=== PATIENT | male | born 1985 | race Caucasian/White ===

== ENCOUNTER → 2016-12-18 | Outpatient (CLI) | payer SELFPAY ==
--- NOTE | 2016-12-19 09:55 | MR ---
EXAMINATION: MRI cervical spine HISTORY: Muscle weakness COMPARISON: None. TECHNIQUE: Multiplanar and multisequence images obtained of the cervical spine without contrast. FINDINGS: The cervical spinal alignment is normal. The vertebral body heights appear well maintained . There is no abnormal bone marrow signal. The cervical spinal cord signal appears normal. The preve rtebral soft tissues are within normal limits. C2-C3: Tiny diffuse disc bulge without significant spinal canal or neural foraminal stenosis. C3-C4: Tiny diffuse disc bulge without significant spinal canal stenosis. Moderate right neural fora solo stenosis accentuated by uncovertebral hypertrophy. C4-C5: Grossly unremarkable. C5-C6: Small to moderate diffuse disc bulge resulting in mild spinal canal stenosis. Minimal bilater al neural foraminal stenosis. C6-C7: Tiny diffuse disc bulge without significant spinal canal stenosis. Mild left neural foraminal stenosis. C7-T1: Unremarkable. IMPRESSION: 1. Multilevel degenerative disc disease noted within the cervical spine with individual details [email or web address] [email or web address]
== END ==
LOC: MW.MRI 15:12
PROVIDERS: ATTEND Family Medicine
DX: M54.2 Cervicalgia (principal); M62.81 Muscle weakness (generalized); M54.12 Radiculopathy, cervical region
CPT/HCPCS: 72141; 72141-26

== ENCOUNTER 2018-02-06 00:10 | Emergency (ER) | payer SELFPAY ==
--- NOTE | 2018-02-06 00:27 | EDM.PDOC ---
ED HPI GENERAL MEDICAL PROBLEM - General Chief Complaint: Genitourinary Problem Stated Complaint: GROIN PAIN Time Seen by Provider: 02/06/18 00:27 Source of Information: Reports: Patient - History of Present Illness INITIAL COMMENTS - FREE TEXT/NARRATIVE: HISTORY AND PHYSICAL: History of present illness: [Patient presents with history of dysuria Last week he presented to us with his was treated for gonorrhea Chlamydia, he was having symptoms at that time but did not desire to be seen as a patient are treated No fever nausea vomiting chills sweats complains of dysuria with initiation of urine as well as some pain with ejaculation ] Multiple sexual partners Review of systems: As per history of present illness and below otherwise all systems reviewed and negative. Past medical history: As per history of present illness and as reviewed below otherwise noncontributory. Surgical history: As per history of present illness and as reviewed below otherwise noncontributory. Social history: No reported history of drug or alcohol abuse. Family history: As per history of present illness and as reviewed below otherwise noncontributory. Physical exam: HEENT: Atraumatic, normocephalic, pupils reactive, negative for conjunctival pallor or scleral icterus, mucous membranes moist, throat clear, neck supple, nontender, trachea midline. Lungs: Clear to auscultation, breath sounds equal bilaterally, chest nontender. Heart: S1S2, regular, negative for clicks, rubs, or JVD. Abdomen: Soft, nondistended, nontender. Negative for masses or hepatosplenomegaly. Negative for costovertebral tenderness. Pelvis: Stable nontender. Genitourinary: No high riding testicle no epididymal swelling or testicle tenderness no mass scarred lesion no exudate at the meatus no evidence of torsion no redness warmth or exudate noted Rectal: Deferred. Extremities: Atraumatic, negative for cords or calf pain. Neurovascular unremarkable. Neuro: Awake, alert, oriented. Cranial nerves II through XII unremarkable. Cerebellum unremarkable. Motor and sensory unremarkable throughout. Exam nonfocal. Diagnostics: [UA GC Chlamydia ] Therapeutics: [1 g Rocephin IM Azithromycin 1 g by mouth now ] Impression: [ dysuria ] Definitive disposition and diagnosis as appropriate pending reevaluation and review of above. left groin Pain Score (Numeric/FACES): 1 - Related Data Allergies Allergy/AdvReac Type Severity Reaction Status Date / Time No Known Allergies Allergy Verified 02/06/18 00:29 Home Meds: Home Meds . [No Known Home Meds] 09/10/15 [History] Past Medical History - Past Health History Medical/Surgical History: Denies Medical/Surgical History Social & Family History - Tobacco Use Smoking Status *Q: Current Every Day Smoker Years of Tobacco use: 10 Packs/Tins Daily: 1 - Recreational Drug Use Recreational Drug Use: No ED ROS GENERAL - Review of Systems Review Of Systems: ROS reveals no pertinent complaints other than HPI. ED EXAM, GENERAL - Physical Exam Exam: See Below Course - Vital Signs Last Recorded V/S: Last Vital Signs Temp 98.6 F 02/06/18 00:10 Pulse 85 02/06/18 00:10 Resp 18 02/06/18 00:10 BP 127/64 02/06/18 00:10 Pulse Ox 96 02/06/18 00:10 - Orders/Labs/Meds Orders: Active Orders 24 hr Category Date Time Status CHLAMYDIA AND GONORRHEA BY TMA Stat Lab 02/06/18 00:30 Received CULTURE URINE [RM] Stat Lab 02/06/18 00:55 Ordered UA W/MICROSCOPIC [URIN] Stat Lab 02/06/18 00:30 Ordered UA W/MICROSCOPIC [URIN] Stat Lab 02/06/18 00:30 Ordered Labs: Laboratory Tests 02/06/18 Range/Units 00:30 Urine Color YELLOW Urine Appearance CLEAR Urine pH 6.5 (5.0-8.0) Ur Specific [place] 1.025 (1.001-1.035) Urine Protein NEGATIVE (NEGATIVE) mg/dL Urine Glucose (UA) NEGATIVE (NEGATIVE) mg/dL Urine Ketones NEGATIVE (NEGATIVE) mg/dL Urine Occult Blood NEGATIVE (NEGATIVE) Urine Nitrite NEGATIVE (NEGATIVE) Urine Bilirubin NEGATIVE (NEGATIVE) Urine Urobilinogen 0.2 (<2.0) EU/dL Ur Leukocyte Esterase NEGATIVE (NEGATIVE) Urine RBC 1-3 (0-2/HPF) Urine WBC 1-2 (0-5/HPF) Ur Epithelial Cells RARE (NONE-FEW) Urine Bacteria FEW (NEGATIVE) Meds: Medications Discontinued Medications Generic Name Dose Route Start Last Admin Trade Name Freq PRN Reason Stop Dose Admin Azithromycin 1,000 mg 02/06/18 00:52 Zithromax 200 Mg/5 Ml Susp PO 02/06/18 00:53 ONETIME ONE Ceftriaxone Sodium 250 mg/ 1 mls @ 1 mls/sec 02/06/18 00:51 Lidocaine HCl IM 02/06/18 00:52 ONETIME ONE Departure - Departure Time of Disposition: 01:03 Disposition: Home, Self-Care 01 Condition: Good Clinical Impression: Dysuria - Discharge Information Referrals: PCP,None [Primary Care Provider] - Forms: ED Department Discharge Additional Instructions: The following information is given to patients seen in the emergency department who are being discharged to home. This information is to outline your options for follow-up care. We provide all patients seen in our emergency department with a follow-up referral. The need for follow-up, as well as the timing and circumstances, are variable depending upon the specifics of your emergency department visit. If you don't have a primary care physician on staff, we will provide you with a referral. We always advise you to contact your personal physician following an emergency department visit to inform them of the circumstance of the visit and for follow-up with them and/or the need for any referrals to a consulting specialist. The emergency department will also refer you to a specialist when appropriate. This referral assures that you have the opportunity for follow-up care with a specialist. All of these measure are taken in an effort to provide you with optimal care, which includes your follow-up. Under all circumstances we always encourage you to contact your private physician who remains a resource for coordinating your care. When calling for follow-up care, please make the office aware that this follow-up is from your recent emergency room visit. If for any reason you are refused follow-up, please contact the [facility] emergency department at and asked to speak to the emergency department charge nurse. - My Orders Last 24 Hours: My Active Orders 02/06/18 00:30 CHLAMYDIA AND GONORRHEA BY TMA Stat UA W/MICROSCOPIC [URIN] Stat UA W/MICROSCOPIC [URIN] Stat 02/06/18 00:55 CULTURE URINE [RM] Stat - Assessment/Plan Last 24 Hours: My Active Orders 02/06/18 00:30 CHLAMYDIA AND GONORRHEA BY TMA Stat UA W/MICROSCOPIC [URIN] Stat UA W/MICROSCOPIC [URIN] Stat 02/06/18 00:55 CULTURE URINE [RM] Stat
[2018-02-06] MEDS ORDERED: cefTRIAXone 250 MG in Lidocaine 1% 1 ML IM ONE (00:51)
[2018-02-06] MEDS ORDERED: Azithromycin 200 MG/5 ML Susp 15 ML Bottle PO ONE (00:52)
[2018-02-06] MEDS ORDERED: Azithromycin 250 MG Tab PO ONE (01:08)
[2018-02-06 01:51] VITALS: BP 119/73
== END 2018-02-06 01:52 | disposition home or self-care (01) ==
LOC: MW.ED 00:10
DX: R30.0 Dysuria (principal); F17.210 Nicotine dependence, cigarettes, uncomplicated
CPT/HCPCS: 81001; 87086; 87491; 87591; 96372; 99283; A9270; J0696; J2001